=== PATIENT | female | born 1955 | race Caucasian/White ===

== ENCOUNTER → 2019-11-22 | Outpatient (CLI) | payer OTHER ==
[2019-11-24 13:09] LABS: HPV 16 Negative (Negative); HPV 18 Negative (Negative); HPV OTHER HR TYPES Negative (Negative)
== END | disposition home or self-care (01) ==
LOC: LAB 09:45 → LAB SHORT 09:45
PROVIDERS: Obstetrics & Gynecology
DX: Z01.419 Encounter for gynecological examination (general) (routine) without abnormal findings (principal)
CPT/HCPCS: 87624; G0123

== ENCOUNTER 2022-02-13 09:35 | Day surgery (SDC) | payer OTHER ==
[~2022-02-13] VITALS: Ht 167.6 cm; Wt 70.6 kg
[2022-02-13] MEDS ORDERED: Ativan1 MG (09:48)
[2022-02-13] MEDS ORDERED: VITAMIN D31000 UNI1 (09:48)
[2022-02-13] MEDS ORDERED: EUTHYROX88 MCG (09:49)
[2022-02-13] MEDS ORDERED: MULVITA (09:49)
--- NOTE | 2022-02-13 10:02 | NUR ---
02/13/22 1002 Kelsey Garcia PT TOOK SUTAB FOR PREP WHICH IS NOT LISTED OPTION IN [employer].
== END 2022-02-13 11:51 | disposition home or self-care (01) ==
LOC: ORSCSDS 09:35
PROVIDERS: Surgery
PROC: 0DJD8ZZ Inspection of Lower Intestinal Tract, Via Natural or Artificial Opening Endoscopic (ICD-10-PCS; principal; 2022-02-13 10:45)
DX: Z12.11 Encounter for screening for malignant neoplasm of colon (principal); K57.30 Diverticulosis of large intestine without perforation or abscess without bleeding; E03.9 Hypothyroidism, unspecified; Z87.891 Personal history of nicotine dependence; Z79.899 Other long term (current) drug therapy
CPT/HCPCS: J2405; J2704; J7120